=== PATIENT | male | born 1960 | race Caucasian/White ===

== ENCOUNTER 2021-02-27 17:19 | Emergency (ER) | payer MEDICARE, OTHER, MEDICAID ==
[2021-02-27 19:18] LABS: RED BLOOD COUNT 4.63 M/UL (4.20-5.50); WHITE BLOOD COUNT 7.8 K/UL (4.5-11.0)
[2021-02-27 19:46] LABS: BUN/CREATININE RATIO 11 (0-10)
[2021-02-27] MEDS ORDERED: GLYCERIN1 EAC1 PR (22:54)
[2021-02-27] MEDS ORDERED: BENTYL 10MG CAP10 MG PO (22:54)
[2021-02-27] MEDS ORDERED: CITRATE OF MAG296 ML PO (22:54)
== END 2021-02-27 23:15 | disposition home or self-care (01) ==
LOC: ER1 17:19
PROVIDERS: Physician Assistant Medical
DX: K59.00 Constipation, unspecified (principal); F17.210 Nicotine dependence, cigarettes, uncomplicated; Z90.49 Acquired absence of other specified parts of digestive tract
CPT/HCPCS: 80053; 81001; 83605; 85025; 99284; Q9967

== ENCOUNTER → 2022-01-04 | Outpatient (CLI) | payer MEDICARE, OTHER ==
[~2022-01-04] MED LIST: BENTYL 10MG CAP10 MG PO; CITRATE OF MAG296 ML PO; GLYCERIN1 EAC1 PR
== END ==
LOC: KOH-I 11:00
DX: F17.210 Nicotine dependence, cigarettes, uncomplicated (principal)
CPT/HCPCS: 71271